=== PATIENT | female | born 1990 | race Two or more races ===

== ENCOUNTER 2019-09-24 22:34 | Emergency (ER) | payer OTHER ==
[2019-09-24 22:47] VITALS: BP 119/69
--- NOTE | 2019-09-24 23:16 | ED Physician Documentation ---
PD HPI URI - Stated complaint Stated Complaint: COUGHING - Chief complaint Chief Complaint: Resp - History obtained from History obtained from: Patient - History of Present Illness Timing - onset: How many weeks ago (2) Timing details: Gradual onset, Intermittant Pain level max: 0 Pain level now: 0 Associated symptoms: Dry cough. No: Fever, Chills, Sweats, Dyspnea Similar symptoms before: Has not had sx before Recently seen: Not recently seen - Additional information Additional information: c/o 2 weeks of dry cough, predominantly at night. this has been preventing adequate sleep. Review of Systems Constitutional: reports: Reviewed and negative Ears: denies: Ear pain Nose: reports: Reviewed and negative Throat: reports: Sore throat (mild) Cardiac: reports: Reviewed and negative Respiratory: reports: Cough. denies: Dyspnea, Wheezing PD PAST MEDICAL HISTORY - Past Medical History Past Medical History: No Cardiovascular: None Respiratory: None Neuro: None Endocrine/Autoimmune: None GI: None BECK TENDER: None : None HEENT: None Psych: None Musculoskeletal: None Derm: None - Past Surgical History Past Surgical History: Yes HEENT: Tonsil/Adenoidectomy - Present Medications Home Medications: Ambulatory Orders Medication Instructions Recorded Confirmed Benzonatate [Tessalon Perle] 100 mg PO TID PRN #20 capsule 09/24/19 guaiFENesin/CODEINE [Robitussin AC] 10 ml PO Q6H PRN #90 udc 09/24/19 - Allergies Allergies/Adverse Reactions: Allergies Allergy/AdvReac Type Severity Reaction Status Date / Time No Known Drug Allergies Allergy Verified 09/24/19 22:43 - Social History Does the pt smoke?: Yes Smoking Status: Current some day smoker Does the pt drink ETOH?: Yes Does the pt have substance abuse?: No - Immunizations Immunizations are current?: Yes - POLST Patient has POLST: No PD ED PE NORMAL - Vitals Vital signs reviewed: Yes - General General: Alert and oriented X 3, No acute distress, Well developed/nourished - HEENT HEENT: Moist mucous membranes, Pharynx benign - Neck Neck: Supple, no meningeal sign - Respiratory Respiratory: No respiratory distress, Clear bilaterally Results - Vitals Vitals: Oxygen O2 Source Room air PD MEDICAL DECISION MAKING - ED course Complexity details: considered differential, d/w patient ED course: emergent testing not indicated at this time. clear lungs to auscultation bilaterally, NAD. Departure - Departure Disposition: 01 Home, Self Care Clinical Impression: Upper respiratory tract infection Condition: Good Instructions: ED Upper Resp Infec No Abx Tx Follow-Up: CHERYL NO III, MD [Primary Care Provider] - Prescriptions: Benzonatate [Tessalon Perle] 100 mg PO TID PRN #20 capsule PRN Reason: Cough guaiFENesin/CODEINE [Robitussin AC] 10 ml PO Q6H PRN #90 udc PRN Reason: Cough Discharge Date/Time: 09/24/19 23:34
[2019-09-24] MEDS ORDERED: BENZONATATE 100 MG CAPSULE PO STA (23:26)
[2019-09-24] MEDS ORDERED: HYDROcod/ACET 5/325 Prepack 4 PO STA (23:26)
== END 2019-09-24 23:34 | disposition home or self-care (01) ==
LOC: EDBD → ED 22:34
DX: J06.9 Acute upper respiratory infection, unspecified (principal); F17.200 Nicotine dependence, unspecified, uncomplicated
CPT/HCPCS: 99282; 99283; A9270

== ENCOUNTER 2019-11-30 08:45 | Day surgery (SDC) | payer OTHER ==
[2019-11-30] MEDS ORDERED: LACTATED RINGERS 1,000 ML IV ONE (08:50)
--- NOTE | 2019-11-30 09:44 | ANESTHESIA ---
Pre-Anesthesia VS, & Labs - NPO >8 hours <Milagros Ford E - Last Filed: 11/30/19 09:41> - NPO >8 hours - Is Patient ?: No - Lab Results Lab results reviewed: Yes <Ray Cantor P - Last Filed: 11/30/19 10:04> - Diagnosis asymmetrical labia (Milagros Ford) - Procedure laft labiaplasty (Milagros Ford) Vital Signs: Temp Pulse Resp BP Pulse Ox 36.6 C 73 16 114/68 100 11/30/19 08:50 11/30/19 08:50 11/30/19 08:50 11/30/19 08:50 11/30/19 08:50 Height 5 ft 7.72 in Weight (kg) 75 kg Body Mass Index 26.4 Home Medications and Allergies <Milagros Ford E - Last Filed: 11/30/19 09:41> <Ray Cantor P - Last Filed: 11/30/19 10:04> Home Medications: Ambulatory Orders Terbinafine [LamISIL] 250 mg PO DAILY 11/21/19 Terbinafine [LamISIL] 250 mg PO DAILY 11/21/19 Allergies/Adverse Reactions: Allergies Allergy/AdvReac Type Severity Reaction Status Date / Time No Known Drug Allergies Allergy Verified 11/21/19 12:37 Anes History & Medical History - Anesthetic History Anesthesia Complications: reports: No previous complications - Medical History Cardiovascular: reports: None Pulmonary: reports: None Gastrointestinal: reports: None Urinary: reports: None Neuro: reports: None Musculoskeletal: reports: None Endocrine/Autoimmune: reports: None Blood Disorders: reports: None Skin: reports: None Smoking Status: Current some day smoker - Surgical History Eyes Ears Nose Throat (EENT): Tonsil/Adenoidectomy <Milagros Ford E - Last Filed: 11/30/19 09:41> Exam General: Alert Dental: WNL, Other (permenant bridge, upper left) Mouth Opening: Greater than 4 Fingerbreadths Neck Mobility: Normal Mallampati classification: I Thyromental Distance: greater than 6 cm Respiratory: Lungs clear Cardiovascular: Regular rate, Normal S1, Normal S2 <Milagros Ford E - Last Filed: 11/30/19 09:41> Plan Anesthesia Type: General Consent for Procedure(s) Verified and Reviewed: Yes Code Status: Attempt Resuscitation ASA classification: 1-Healthy patient Is this case an emergency?: No <Milagros Ford - Last Filed: 11/30/19 09:41>
[2019-11-30] MEDS ORDERED: LIDOCAINE 1%-EPI 1:100000 20 ML MDV ONE (09:45)
[2019-11-30 09:57] LABS: HCG UR QUAL NEGATIVE
[2019-11-30] MEDS ORDERED: fentaNYL 100 MCG/2 ML VIAL IVP ONE (10:08)
[2019-11-30] MEDS ORDERED: LIDOCAINE-MPF 2% 5 ML VIAL IM ONE (10:08)
[2019-11-30] MEDS ORDERED: ONDANSETRON 4 MG/2 ML VIAL IVP ONE (10:08)
[2019-11-30] MEDS ORDERED: DEXAMETHASONE 4 MG/ML VIAL IVP ONE (10:08)
[2019-11-30] MEDS ORDERED: MIDAZOLAM 2 MG/2 ML VIAL IVP ONE (10:08)
[2019-11-30] MEDS ORDERED: KETOROLAC 30 MG/ML VIAL IVP ONE (10:08)
[2019-11-30] MEDS ORDERED: PROPOFOL 200 MG/20 ML VIAL IVP ONE (10:08)
[2019-11-30] MEDS ORDERED: LIDOCAINE 1%-EPI 1:100000 20 ML MDV SUBQ ONE (10:26)
[2019-11-30] MEDS ORDERED: ACETAMINOPHEN 1,000 MG/100 ML 100 ML IV ONE (10:57)
[2019-11-30] MEDS ORDERED: HYDROcod/ACETAM 10 MG/325 MG TABLET PO PRN (10:57)
--- NOTE | 2019-11-30 11:05 | OPERATIVE REPORT ---
Operative Report - General Procedure Date: 11/30/19 Planned Procedure: Left labioplasty Pre-Op Diagnosis: Asymmetrical left labium minus Procedure Performed: Same as above Post Op Diagnosis: Same as above - Procedure Note Primary Surgeon: Ilana Anesthesia Provider: Devaughn Anesthesia Technique: General LMA Pathology: Portion of the left labium minus IV Fluids (mL): 300 Estimated Blood Loss (mL): 10 Indications: Asymmetrically large left labium minus Complications: None - Other Other Information/Narrative: The patient was brought to the operating room and placed supine on the operating table. She was given general anesthesia by LMA and prepped and draped in the usual sterile fashion in low lithotomy stirrups. A timeout was performed. The left labium minus was marked and injected with 5 cc of 1% lidocaine with epinephrine. A Haile clamp was used to cross-clamp the excess labial tissue to approximate the appearance of the right labium minus. The excess tissue was excised sharply. The clamp was removed and the resulting defect was closed with interrupted 5-0 Vicryl sutures in an interrupted fashion. When hemostasis was judged adequate, the patient was awakened and taken to the recovery room in stable condition.
[2019-11-30 11:59] VITALS: BP 114/74
== END 2019-11-30 08:46 | disposition home or self-care (01) ==
LOC: SDS 08:45
PROVIDERS: ATTEND Obstetrics & Gynecology
PROC: 0UBMXZZ Excision of Vulva, External Approach (ICD-10-PCS; principal; 2019-11-30 10:15)
DX: Q52.79 Other congenital malformations of vulva (principal); F17.290 Nicotine dependence, other tobacco product, uncomplicated
CPT/HCPCS: 81025